=== PATIENT | male | born 1970 | race Caucasian/White ===

== ENCOUNTER 2023-11-13 09:38 | Emergency (ER) | payer OTHER ==
[2023-11-13] MEDS ORDERED: Diphtheria,Pertussis(Acell),Tetanus Vaccine 0.5 ML Syringe IM ONE (10:21)
[2023-11-13] MEDS ORDERED: Lidocaine 1% with EPINEPHrine 1:100,000 50 ML MDV INFILT ONE (10:41)
[2023-11-13] MEDS ORDERED: Lidocaine 1% with EPINEPHrine 1:100,000 20 ML MDV INJECT ONE (10:43)
[2023-11-13] MEDS ORDERED: Bacitracin Oint 1 GM U/D Packet TOP ONE (10:45)
== END 2023-11-13 10:35 | disposition home or self-care (01) ==
LOC: LB.ED 09:38
DX: S61.211A Laceration without foreign body of left index finger without damage to nail, initial encounter (principal); W26.0XXA Contact with knife, initial encounter
CPT/HCPCS: 12001; 90471; 90715; 99282; 99282-25